=== PATIENT | male | born 1980 | race Caucasian/White ===

== ENCOUNTER 2019-05-01 23:30 | Emergency (ER) | payer OTHER ==
--- NOTE | 2019-05-02 02:45 | ER Document Report ---
ED General - General Chief Complaint: Sore Throat Stated Complaint: COUGH SORE THROAT Time Seen by Provider: 05/02/19 01:37 Primary Care Provider: KATY KELLY FNP [Primary Care Provider] - Follow up as needed TRAVEL OUTSIDE OF THE [place] IN LAST 30 DAYS: No - HPI Patient complains to provider of: sore throat Onset: Just prior to arrival Onset/Duration: Sudden Quality of pain: Sharp Severity: Moderate Pain Level: 1 Context: 38 year old male otherwise healthy started with sore throat in last day and pain with swallowing. [employer] with culture + strep 3 days ago. He has no significant past medical history and no allergies. Daughter here with similar symptoms. Exacerbated by: Denies Relieved by: Denies - Related Data Allergies/Adverse Reactions: No Known Allergies Allergy (Verified 08/05/11 11:34) Past Medical History - Social History Smoking Status: Never Smoker Family History: Reviewed & Not Pertinent Patient has suicidal ideation: No Patient has homicidal ideation: No - Immunizations Hx Diphtheria, Pertussis, Tetanus Vaccination: No Review of Systems - Review of Systems Constitutional: No symptoms reported EENT: Throat pain, Difficulty swallowing Cardiovascular: No symptoms reported Respiratory: No symptoms reported Gastrointestinal: No symptoms reported Genitourinary: No symptoms reported Male Genitourinary: No symptoms reported Musculoskeletal: No symptoms reported Skin: No symptoms reported Hematologic/Lymphatic: No symptoms reported Neurological/Psychological: No symptoms reported Physical Exam - Vital signs Vitals: Temp Pulse Resp BP Pulse Ox 97.7 F 70 20 142/85 H 99 05/01/19 23:44 05/01/19 23:44 05/01/19 23:44 05/01/19 23:44 05/01/19 23:44 Interpretation: Normal - General General appearance: Appears well, Alert - HEENT Head: Normocephalic, Atraumatic Eyes: Normal Pupils: PERRL Pharynx: Erythema. No: Exudate Neck: Lymphadenopathy - Respiratory Respiratory status: No respiratory distress Chest status: Nontender Breath sounds: Normal Chest palpation: Normal - Cardiovascular Rhythm: Regular Heart sounds: Normal auscultation Murmur: No - Abdominal Inspection: Normal Distension: No distension Bowel sounds: Normal Tenderness: Nontender Organomegaly: No organomegaly - Back Back: Normal, Nontender - Extremities General upper extremity: Normal inspection, Nontender, Normal color, Normal ROM, Normal temperature General lower extremity: Normal inspection, Nontender, Normal color, Normal ROM, Normal temperature, Normal weight bearing. No: Mohan's sign - Neurological Neuro grossly intact: Yes Cognition: Normal Orientation: AAOx4 Gaines Coma Scale Eye Opening: Spontaneous Gaines Coma Scale Verbal: Oriented Gaines Coma Scale Motor: Obeys Commands Barrie Coma Scale Total: 15 Speech: Normal Motor strength normal: LUE, RUE, LLE, RLE Sensory: Normal - Psychological Associated symptoms: Normal affect, Normal mood - Skin Skin Temperature: Warm Skin Moisture: Dry Skin Color: Normal Course - Re-evaluation Re-evalutation: 05/02/19 02:42 MDM with culture + close contact ([employer]) feel it is very reasonable to treat for strep in this gentleman. Explained to him and family and they expressed understanding. - Vital Signs Vital signs: Temp Pulse Resp BP Pulse Ox 97.7 F 70 20 142/85 H 99 05/01/19 23:44 05/01/19 23:44 05/01/19 23:44 05/01/19 23:44 05/01/19 23:44 Discharge - Discharge Clinical Impression: Pharyngitis Qualifiers: Pharyngitis/tonsillitis etiology: unspecified etiology Qualified Code(s): J02.9 - Acute pharyngitis, unspecified Condition: Good Disposition: HOME, SELF-CARE Instructions: Sore Throat ([facility]), Strep Throat ([facility]) Additional Instructions: See your doctor in follow up. No work 05/02. Finish the antibiotic. Take tylenol or motrin for pain. Forms: Return to Work Referrals: KATY KELLY FNP [Primary Care Provider] - Follow up as needed
[2019-05-02] MEDS ORDERED: AMOXICILLIN TRIHYDRATE 500 MG CAPSULE PO ONE (02:49)
[2019-05-02 02:58] VITALS: BP 133/88
== END 2019-05-02 03:10 | disposition home or self-care (01) ==
LOC: ER 23:30
DX: J02.9 Acute pharyngitis, unspecified (principal); R05 Cough; R13.10 Dysphagia, unspecified
CPT/HCPCS: 87880; 99283